=== PATIENT | female | born 2000 | race Caucasian/White ===

== ENCOUNTER 2023-04-02 16:51 | Emergency (ER) | payer SELFPAY ==
[2023-04-02 17:08] VITALS: BP 96/60; PULSE 90; RESP 16; TEMP 36.6; O2SAT 98; BMI 21.0
[2023-04-02 17:22] VITALS: RESP 18
[2023-04-02] MEDS: OLANZapine 10 MG VIAL 5 MG IM (17:22)
[2023-04-02] MEDS: Midazolam HCl/PF 2 MG/2 ML VIAL 4 MG IM (17:22)
--- NOTE | 2023-04-02 17:29 | ED_ITS ---
HPI - Psych General Chief Complaint: Psychiatric Symptoms Stated Complaint: SI LAC TO L ARM WITH RAZOR Time Seen by Provider: 04/02/23 16:53 Source: patient and EMS Mode of arrival: EMS Limitations: other (agitated) History of Present Illness HPI Narrative: 23 yo female who is staying with her boyfriends mom - states the boyfriends mom does not like her and that the patient went to a bar today and drank ETOH she then notes the mom wants her to be kicked out. She is homeless and has nowhere to go. She self harmed with razor to left forearm. She made SI statements to police and EMS arrival. She denies all of this is agitated on arrival and was screaming and aggressive en route to the hospital yelling kill me now. MD complaint: feels depressed and anxiety Onset (ago): day(s) (1) Duration: constant History of same: Yes Relieving factors: none Exacerbating factors: alcohol Context: significant life stressor Associated psychiatric symptoms: depression Associated symptoms: denies other symptoms Treatments prior to arrival: placed on mental health hold If self harm: self-inflicted trauma (linear abrasions to L forearm) Related Data Allergies Allergy/AdvReac Type Severity Reaction Status Date / Time No Known Allergies Allergy Verified 04/02/23 17:05 Review of Systems 2 Review of Systems: Constitutional : No Fever, No Chills ENT/Mouth : No Ear Pain, No Nasal Congestion, No sore throat Eyes: No Eye Pain, No Swelling, No Redness Cardiovascular : No Chest Pain, No SOB Respiratory : No Cough, No Sputum, No Dyspnea Gastrointestinal : No Nausea, No Vomiting, No Diarrhea, No Hematochezia, No Melena Genitourinary : No Dysuria, No Urinary Frequency, No Hematuria Musculoskeletal : No Myalgias Skin : No Skin Lesions, No rash, pos abrasions Neuro : No Weakness, No Numbness, No Paresthesias, No Dizziness, No Headache Psych : positive Anxiety, positive Depression, denies SI/HI All other systems reviewed and are negative [facility] Past Medical History Attestation statement: The following information was validated with the patient. Medical History Self-cutting of wrist Social History Social History (Updated 04/02/23 @ 17:34 by Katarina Avendano DO) Alcohol intake: current Patient Tobacco Use Status: Tobacco use Unknown Physical Exam 2 Vital Signs: Vital Signs: Last Vital Signs Temp 98 F 04/02/23 17:08 Pulse 100 04/02/23 18:07 Resp 20 04/02/23 18:07 BP 118/72 04/02/23 18:07 Pulse Ox 97 04/02/23 18:07 O2 Del Method Room Air 04/02/23 18:07 BMI result Body Mass Index 21.0 Appearance: Alert. Oriented X3. Mild acute distress. Agitated, intermittently yelling Eyes: Pupils equal, round and reactive to light. ENT: Pharynx normal. Neck: Normal inspection. Neck supple. CVS: Normal heart rate and rhythm. Pulses normal. Respiratory: No respiratory distress. Breath sounds normal. Abdomen: Soft and nontender. Skin: Skin warm and dry. Normal skin color. Normal skin turgor. Extremities: No lower extremity edema. L forearm superficial linear abrasions Neuro: Oriented X 3. No motor deficit. No sensory deficit. CN2-12 intact Course Course Course Narrative: we did try to talk the patient down but then she escalated again and became very aggressive she made SI statements to EMS and the police at this time we had to give her IM medications in order to keep her and staff safe Reevaluation(s) Reevaluation #1: Physician observation started at 536pm. Patient placed in physician observation because the patient needed more time for CARE team to assess the need for psych admission. At the time observation was started the patient's vitals were stable, patient is alert and oriented but agitated, Neuro: nonfocal, CV RRR, Lungs clear Reevaluation #2: aggressive, trying to exit pod, will not redirect IM haldol ordered Medications Administered Discontinued Medications Generic Name Dose Route Start Last Admin Trade Name Freq PRN Reason Stop Dose Admin Haloperidol Lactate 5 mg 04/02/23 21:43 04/02/23 21:48 Haloperidol Lactate 5 Mg/Ml Vial IM 04/02/23 21:44 5 mg STAT STA Administration Midazolam HCl 4 mg 04/02/23 17:05 04/02/23 17:22 Midazolam Hcl/Pf 2 Mg/2 Ml Vial IM 04/02/23 17:06 4 mg ONCE ONE Administration Olanzapine 5 mg 04/02/23 17:05 02/14/24 17:22 Olanzapine 10 Mg Vial IM 04/02/23 17:06 5 mg STAT STA Administration Medical Decision Making Medical Decision Making MDM Narrative: 23 yo female states she has a hx of cutting here with SI statements on S12 at this time will need labs, IM medications given severe agitation and her behaviors will not de-escalate. CARE team consult. Abrasions are superficial Differential Diagnosis Differential Diagnoses: The differential diagnosis associated with the presentation includes ETOH use, anxiety, depression Admission/Observation Consideration of admission/observation: Escalation of care including admission/observation considered observe until seen by CARE team Consult Healthcare Provider Management of the patient was discussed with: Behavioral Health Provider Lab Data [facility] Lab Attestation statement: I reviewed the patient's lab results. 04/02/23 21:29 04/02/23 21:29 Labs: Lab Results 04/02/23 04/02/23 Range/Units 17:47 21:29 WBC 10.3 (4.8-10.8) X10*3/uL RBC 5.29 (4.20-5.50) X10*6/uL Hgb 16.0 (12.0-16.0) g/dl Hct 46.6 (37.0-47.0) % MCV 88.1 (80.0-98.0) fL MCH 30.2 (27.0-33.0) pg MCHC 34.3 (31.0-35.0) g/dl RDW 11.7 (11.0-16.0) % Plt Count 302 (160-400) X10*3/uL MPV 9.7 (9.4-12.3) fL Immature Gran % (Auto) 0.4 (0.0-0.4) % Neut % (Auto) 60.7 (45-73) % Lymph % (Auto) 26.7 (20-40) % Rice % (Auto) 10.5 (2-11) % Eos % (Auto) 1.3 (0-4) % Baso % (Auto) 0.4 (0-2) % Lymph # (Auto) 2.8 (1.2-4.9) X10*3/uL Rice # (Auto) 1.1 (0.1-1.2) X10*3/uL Eos # (Auto) 0.1 (0.0-0.4) X10*3/uL Baso # (Auto) 0.0 (0.0-0.2) X10*3/uL Abs Immat Gran (auto) 0.04 H (0.00-0.03) X10*3/uL Absolute Neuts (auto) 6.3 (2.0-8.3) x10*3/uL Absolute Nucleated RBC 0.000 (0.0-0.012) X10*3/uL Nucleated RBC % (auto) 0.0 (0.0-0.2) /100WBC Sodium 147 H (135-145) mmol/L Potassium 3.5 (3.3-5.1) mmol/L Chloride 109 H (96-108) mmol/L Carbon Dioxide 26 (22-29) mmol/L Anion Gap 16 (12-20) BUN 6 L (9-16) mg/dL Creatinine 0.73 (0.5-1.4) mg/dL Estim Creat Clear Calc 95.5 Estimated GFR > 60 Random Glucose 112 (60-115) mg/dL Calcium 9.7 (8.4-10.2) mg/dL Magnesium 2.1 (1.6-2.6) mg/dL Total Bilirubin 0.2 (0.0-1.0) mg/dL Direct Bilirubin < 0.2 (0.0-0.5) mg/dL AST 23 (5-31) U/L ALT 20 (0-31) U/L Alkaline Phosphatase 92 (39-117) U/L Total Protein 7.6 (6.5-8.0) g/dL Albumin 4.7 (3.5-5.0) g/dL Beta HCG, Quant < 2 mIU/mL Urine Color Yellow Urine Appearance Clear Urine pH 6.0 (5.0-9.0) Ur Specific Ideal <= 1.005 (1.005-1.025) Urine Protein Negative (Neg-Trace) mg/dL Urine Glucose (UA) Negative (Negative) mg/dL Urine Ketones Negative (Negative) mg/dL Urine Blood Negative (Negative) Urine Nitrite Negative (Negative) Ur Leukocyte Esterase Negative (Negative) Urine Opiates Screen Not Detected (Not Detect) Urine Fentanyl Screen Not Detected (Not Detect) Ur Barbiturates Screen Not Detected (Not Detect) Ur Phencyclidine Scrn Not Detected (Not Detect) Ur Amphetamines Screen Not Detected (Not Detect) U Benzodiazepines Scrn Not Detected (Not Detect) Urine Cocaine Screen Not Detected (Not Detect) U Marijuana (THC) Screen Not Detected (Not Detect) Ethyl Alcohol 158 mg/dL COVID-19 (LAUREN) Negative (Negative) COVID-19 Clin Com See Note Independent Historian Clinical information obtained from an independent historian. History obtained from or confirmed by: EMS Critical Care Time Critical Care Time Critical Care Time: Yes Total Critical Care Time: 45 Attestation: repeat IM medications for agitation, reassessment I attest to this time spent taking care of the patient Discharge Plan Discharge Clinical Impression: Acute anxiety, Abrasion Alcohol intoxication Qualifiers: Complication of substance-induced condition: with unspecified complication Q ualified Code(s): F10.929 - Alcohol use, unspecified with intoxication, unspecified Patient Disposition: Still a Patient Interventions: Wentworth-Suicide Risk Severity Scale Last Done: 04/02/23 17:03
[2023-04-02 17:37] VITALS: BP 106/69; PULSE 92; RESP 20; O2SAT 96
[2023-04-02 17:52] VITALS: BP 110/65; PULSE 98; RESP 16; O2SAT 97
[2023-04-02 18:06] LABS: Appearance Urine Clear; Color Urine Yellow; Glucose Urine UA Negative (Negative); Leukocyte Esterase Urine Negative (Negative); Nitrite Urine Negative (Negative); Specific Gravity - Urine <= 1.005 (1.005-1.025); Urine Blood Negative (Negative); Urine Ketones Negative (Negative); Urine Protein Negative (Neg-Trace)
[2023-04-02 18:07] VITALS: BP 118/72; PULSE 100; RESP 20; O2SAT 97
[2023-04-02 18:24] LABS: Amphetamine Screen Urine Not Detected (Not Detect); Barbiturates, Urine Not Detected (Not Detect); Benzodiazepines Screen Urine Not Detected (Not Detect); Cannabinoid Screen Urine Not Detected (Not Detect); Cocaine Screen Urine Not Detected (Not Detect); Fentanyl, urine Not Detected (Not Detect); Opiate Screen Urine Not Detected (Not Detect); Phencyclidine Screen Urine Not Detected (Not Detect)
[2023-04-02 18:30] LABS: COVID-19 Test Negative (Negative); IDNOW Serial# 08D9AD1C
--- NOTE | 2023-04-02 18:30 | PC.NURSE ---
wounds to left forearm cleansed w ns per md lizama, dressed w tape and gauze
--- NOTE | 2023-04-02 20:07 | PC.NURSE ---
patient appears to remain asleep, had rec'd medication restraint on prior shift about 1700, patients father had called to inquire about patient status, father advised client presently sleeping and awaits assessment post medical clearance. patient appears in no distress.
[2023-04-02 21:39] LABS: MANUAL DIFF FLAG NO
[2023-04-02 21:43] LABS: Basophils Percent Auto 0.4 % (0-2); Eosinophils Absolute Auto 0.1 X10*3/uL (0.0-0.4); Eosinophils Percent Auto 1.3 % (0-4); Hematocrit 46.6 % (37.0-47.0); Imm Gran Abs Auto 0.04 X10*3/uL (0.00-0.03); Imm Gran Pct Auto 0.4 % (0.0-0.4); Lymphocytes Absolute Auto 2.8 X10*3/uL (1.2-4.9); Lymphocytes Percent Auto 26.7 % (20-40); Mean Corpuscular HGB Conc 34.3 g/dl (31.0-35.0); Mean Corpuscular Hemoglobin 30.2 pg (27.0-33.0); Mean Corpuscular Volume 88.1 fL (80.0-98.0); Mean Platelet Volume 9.7 fL (9.4-12.3); Monocytes Absolute Auto 1.1 X10*3/uL (0.1-1.2); Monocytes Percent Auto 10.5 % (2-11); Neutrophils Absolute Auto 6.3 x10*3/uL (2.0-8.3); Neutrophils Percent Auto 60.7 % (45-73); Platelet Count 302 X10*3/uL (160-400); Red Blood Count 5.29 X10*6/uL (4.20-5.50); Red Cell Distribution Width 11.7 % (11.0-16.0); White Blood Count 10.3 X10*3/uL (4.8-10.8)
[2023-04-02] MEDS: Haloperidol Lactate 5 MG/ML VIAL IM (21:48)
[2023-04-02 22:07] LABS: Alanine Aminotransferase 20 U/L (0-31); Albumin Level 4.7 g/dL (3.5-5.0); Alkaline Phosphatase 92 U/L (39-117); Anion Gap 16 (12-20); Aspartate Amino Transferase 23 U/L (5-31); Bilirubin Direct < 0.2 mg/dL (0.0-0.5); Bilirubin Total 0.2 mg/dL (0.0-1.0); Blood Urea Nitrogen 6 mg/dL (9-16); Calcium 9.7 mg/dL (8.4-10.2); Carbon Dioxide 26 mmol/L (22-29); Chloride 109 mmol/L (96-108); Creatinine Clr Calc Pharmacy 95.5; Estimated Glomerular Filt Rate > 60; Ethanol 158 mg/dL; Glucose Random 112 mg/dL (60-115); Magnesium 2.1 mg/dL (1.6-2.6); Potassium 3.5 mmol/L (3.3-5.1); Sodium 147 mmol/L (135-145); Total Protein 7.6 g/dL (6.5-8.0)
[2023-04-02 22:09] LABS: HCG Quantitative < 2 mIU/mL
[2023-04-03 02:53] VITALS: BP 113/73; PULSE 83; RESP 15; TEMP 36.4; O2SAT 98
== END 2023-04-03 12:16 | disposition home or self-care (01) ==
PROVIDERS: Emergency Provider Emergency Medicine
DX: F41.9 Anxiety disorder, unspecified (principal); S60.812A Abrasion of left wrist, initial encounter; X78.8XXA Intentional self-harm by other sharp object, initial encounter; F10.929 Alcohol use, unspecified with intoxication, unspecified; Y90.6 Blood alcohol level of 120-199 mg/100 ml; F32.A Depression, unspecified; R45.6 Violent behavior; Z11.52 Encounter for screening for COVID-19; Z72.89 Other problems related to lifestyle; Z59.811 Housing instability, housed, with risk of homelessness; Y93.9 Activity, unspecified; Y92.9 Unspecified place or not applicable; Y99.9 Unspecified external cause status
CPT/HCPCS: 80048; 80076; 80307; 81003; 83735; 84702; 85025; 87635; 99284; 99285; J1630; J2250; J2359; S9485

== ENCOUNTER 2023-04-03 12:52 | Emergency (ER) | payer SELFPAY ==
[2023-04-03 12:54] VITALS: BP 128/77; PULSE 100; RESP 19; TEMP 36.6; O2SAT 99; BMI 18.9
--- NOTE | 2023-04-03 12:54 | ED.GENADULT ---
HPI - General Adult General Chief complaint: General Medical Stated complaint: Dystonic Reaction Time Seen by Provider: 04/03/23 12:57 Source: patient, RN notes reviewed and old records reviewed Mode of arrival: ambulatory History of Present Illness HPI narrative: 23-year-old female with past medical history self-harm, presenting back to ED after just being discharged, as was noted to be having involuntary mouth movement/possible dystonic reaction while in the waiting room waiting for her ride. Patient was just discharged from our emergency department after being cleared by CARE team. Patient presented to the ED yesterday evening, was chemically restrained with IM Haldol, Versed, and Olanzapine. Denies SI/HI at present. Denies taking any illicit substances or drugs since discharge. Denies SOB/CP, abdominal pain Related Data Previous Rx's Medication Instructions Recorded diphenhydramine HCl 25 mg capsule 25 mg PO TID 4 days #12 caps 04/03/23 (Benadryl) Allergies Allergy/AdvReac Type Severity Reaction Status Date / Time No Known Allergies Allergy Verified 04/02/23 17:05 Review of Systems Review of Systems: Constitutional: No Fever, No Chills ENT/Mouth: No Ear Pain, No Nasal Congestion, No Hoarseness, No sore throat, No Rhinorrhea, No Swallowing Difficulty Cardiovascular: No Chest Pain, No SOB Respiratory: No Cough Gastrointestinal: No Nausea, No Vomiting, No Abdominal pain Musculoskeletal: No joint pain, No Myalgias, No Joint Swelling Skin: No Skin Lesions, No rash Neuro: + involuntary mouth movements, No Weakness, No Numbness, No Paresthesias Psych: No SI/HI Yes all other systems are reviewed and are negative Constitutional: Constitutional: Reports as per [facility] Past Medical History Attestation statement: The following information was validated with the patient. Source: old records reviewed Medical History Self-cutting of wrist Social History Social History Alcohol intake: current Patient Tobacco Use Status: Tobacco use Unknown Advance Directives: No Physical Exam ED Vital Signs: Vital Signs - 24 hr 04/03/23 12:54 Temperature 98 F Pulse Rate 100 Respiratory Rate 19 Blood Pressure 128/77 Pulse Oximetry 99 Oxygen Delivery Method Room Air BMI result Body Mass Index 18.9 Const General: cooperative, healthy appearing and no acute distress Orientation/consciousness: patient oriented x3 Limitations: no limitations HENMT Head: Yes normal to inspection and Yes atraumatic Ears: hearing grossly normal bilaterally General nose exam: Normal external nose present Face and sinus: Yes normal facial exam Mouth: Normal oral and palatal mucosa present Throat: Yes posterior oropharynx normal and Yes uvula midline Eyes General: appearance normal, both eyes and all related structures EOM: EOMs intact bilaterally Neck Neck: Yes normal visual inspection and Yes no meningeal signs Resp Effort & Inspection: normal respiratory effort, not labored, no respiratory distress and no stridor Cardio Rate: regular rate Skin Rashes: no rashes Wounds: no wounds Neuro Other: No appreciable involuntary movements. No lip smacking. Talking in complete sentences. No tremors. General: patient oriented x3, tone normal, moves all extremities, no meningeal signs, no focal motor deficits and CN's II-XI intact bilaterally Cranial nerves: Yes CN's II-XII intact bilaterally Gait exam (Neuro): Normal gait present Motor exam (neuro): no tremor noted and Motor fasciculations not present Extrem General: Yes normal to inspection Psych Thought content: suicidality and no homicidality Course Course Course Narrative: This is a rapid medical exam: Additional HPI, ROS, PE not included below will be deferred to primary provider. Patient was just discharged from the ED, noted to be developing dystonic reaction in the waiting room while waiting for her ride, brought to triage by security. Plan: Benadryl ordered, patient to go to [facility]--patient has been observed for over an hour, no appreciable dystonic reaction/abnormal movements, did receive 50 mg of IV Benadryl in the ED. Will set Benadryl to [facility]. Results discussed with patient including worrisome signs and symptoms and strict return precautions, and when to return to the emergency department. They verbalized understanding and feel safe for discharge at this time. Medications Administered Discontinued Medications Generic Name Dose Route Start Last Admin Trade Name Freq PRN Reason Stop Dose Admin Diphenhydramine HCl 50 mg 04/03/23 12:57 04/03/23 13:11 Diphenhydramine Hcl 50 Mg/Ml Vial IVPUSH 04/03/23 12:58 50 mg ONCE ONE Administration Medical Decision Making Medical Decision Making MDM Narrative: 23-year-old female with past medical history self-harm, presenting back to ED after just being discharged, as was noted to be having involuntary mouth movement/possible dystonic reaction while in the waiting room waiting for her ride. Denies SI/HI at present. On exam vital signs stable, NAD, nontoxic appearing physical exam as noted above, no appreciable involuntary movements or tremor/fasciculations on this curriculum writer's evaluation. Concern for dystonic reaction/medication adverse reaction to IM medications given last night vs purposeful movements. Plan: IV Benadryl, observe and re-evaluate Please refer to course for remaining clinical decision making, interpretation of labs/imaging results, and discussions with consultants and/or family members. Differential Diagnosis Differential Diagnoses: The differential diagnosis associated with the presentation includes As above External Record Review External record reviewed: Inpatient record, Office record, Outpatient record, Prior outpatient labs, Prior outpatient radiology, Primary care record and Outside ED record Tests considered The following testing was considered but not selected: As above Prescription Management I considered prescription management with: Other Chronic Conditions Patient?s care impacted by: Other Discharge Plan Discharge Clinical Impression: Abnormal movements Patient Disposition: Home, Self-Care Instructions: Muscle Cramp (ED) Additional Instructions: Please avoid any new medications Please take Benadryl every 6-8 hours for the next 3-5 days to avoid any recurrent reaction Please follow-up with your doctor and therapist If you have thoughts of hurting herself or others return to the emergency department Prescriptions: New diphenhydramine HCl [Benadryl] 25 mg capsule 25 mg PO TID 4 Days Qty: 12 0RF Referrals: [facility] [Provider Group] [facility] [Outside] Interventions: ED Discharge Assessment Last Done: 04/03/23 15:27 Discharge Date/Time: 04/03/23 15:29
[2023-04-03] MEDS: diphenhydrAMINE HCL 50 MG/ML VIAL IVPUSH (13:11)
== END 2023-04-03 15:29 | disposition home or self-care (01) ==
PROVIDERS: Emergency Provider Emergency Medicine
DX: G25.9 Extrapyramidal and movement disorder, unspecified (principal); Z91.52 Personal history of nonsuicidal self-harm
CPT/HCPCS: 96374; 99282; 99284; J1200